=== PATIENT | male | born 1955 | race Caucasian/White ===

== ENCOUNTER 2016-12-28 08:58 | Emergency (ER) | payer OTHER ==
[~2016-12-28] VITALS: Ht 182.9 cm; Wt 100.0 kg
[2016-12-28 09:08] VITALS: BP 175/95; PULSE 115; RESP 20; O2SAT 97
[2016-12-28] MEDS ORDERED: MULTTAB4 (09:16)
[2016-12-28 09:17] VITALS: BP 175/95; PULSE 116; RESP 20; TEMP 98.4; O2SAT 96
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
[2016-12-28] MEDS ORDERED: ULTR50TA5 PO (11:32)
[2016-12-28] MEDS ORDERED: MOBI15TA PO (11:32)
[2016-12-28] MEDS ORDERED: CIPR-9 PO (11:36)
== END 2016-12-28 12:03 | disposition home or self-care (01) ==
LOC: NEPD 08:58
DX: S09.90XA Unspecified injury of head, initial encounter (principal); S16.1XXA Strain of muscle, fascia and tendon at neck level, initial encounter; S39.012A Strain of muscle, fascia and tendon of lower back, initial encounter; J32.9 Chronic sinusitis, unspecified; M25.511 Pain in right shoulder; H40.9 Unspecified glaucoma; V43.52XA Car driver injured in collision with other type car in traffic accident, initial encounter; Z79.899 Other long term (current) drug therapy; Z88.0 Allergy status to penicillin
CPT/HCPCS: 70450; 72125; 72131